=== PATIENT | female | born 1975 | race Caucasian/White ===

== ENCOUNTER 2016-08-17 21:35 | Emergency (ER) | payer OTHER ==
[~2016-08-17] VITALS: Ht 160 cm; Wt 69.6 kg
[~2016-08-17 21:35] MED LIST: ALOE VERA JUICE PO; BENTYL20 MG PO; CARAFATE1 GM PO; CURCUMIN PO; ESOMEPRAZOLE MA40 MG PO; LBS II PO; LINZESS145 MCG PO; MAGNESIUM250 MG PO; MIRALAX17 GM PO; NAPROSYN500 MG PO; ONDANSETRON HCL4 MG PO; PEPCID COMPLET1 EACH PO; PERCOCET 5/31 TABLET PO; PROBIOTIC1 EAC2 PO; PROMETHAZINE HC25 M1 PO; PROTONIX40 MG PO; REGLAN10 MG PO; STOMACH RELIEF262 M1 PO; SUCRALFATE1 GM PO; TERRAZYME PO; VITAMIN B12 PO; ZANTAC150 MG PO; ZOFRAN4 MG PO; ZYRTEC10 M2 PO; ZYRTEC10 M3 PO; [UNRECOGNIZED DRUG - CODE] PO; [UNRECOGNIZED DRUG - OTHER] PO; [UNRECOGNIZED DRUG - OTHER] PO
[2016-08-17 22:24] LABS: HEMATOCRIT 33.6 % (36.0-46.0); MCH 26.9 PG (29.0-34.0); MCHC 33.3 G/DL (30.0-36.0); MCV 80.8 FL (83-99); MEAN PLAT.VOLUME 10.1 uM^3 (9.5-12.4); PLATELET COUNT 343 K/uL (156-360); RBC DIS.WIDTH-CV 14.6 % (11.8-14.6); RBC DIS.WIDTH-SD 41.9 % (39-53); RED BLOOD COUNT 4.16 M/uL (3.80-5.20); WHITE BLOOD COUNT 10.2 K/uL (4.1-10.2)
[2016-08-17 22:44] LABS: CHLORIDE 107 mEq/L (99-109); POTASSIUM 3.9 mEq/L (3.7-5.4); SODIUM 138 mEq/L (136-147)
[2016-08-17 22:46] LABS: GLUCOSE 115 mg/dL (70-99)
[2016-08-17 22:47] LABS: ANION GAP 9 MEQ/L (2-14)
[2016-08-17 22:48] LABS: TOTAL BILIRUBIN 0.5 mg/dL (0.0-1.0)
[2016-08-17 22:49] LABS: ALKALINE PHOSPHATASE 53 IU/L (3-129)
[2016-08-17 22:50] LABS: GFR ESTIMATE (CALCULATED) > 59 mL/min/
[2016-08-17 22:51] LABS: QUANTITATIVE HCG < 4.0 MIU/ML; UREA NITROGEN (BUN) 5 mg/dL (9-23)
[2016-08-17 22:53] LABS: LIPASE 29 U/L (1.0-51.0)
[2016-08-18 02:56] LABS: ADD MIUA? NO; BILIRUBIN NEGATIVE; BLOOD NEGATIVE; COLOR YELLOW ((YELLOW)); GLUCOSE (STRIP) NEGATIVE; KETONES NEGATIVE; LEUKOCYTES NEGATIVE; NITRITE NEGATIVE; PROTEIN (STRIP) NEGATIVE; SPECIFIC GRAVITY 1.006 (1.000-1.030); UCUL ADDED? NO; UROBILINOGEN 0.2 MG/DL (0.2-1.0)
[2016-08-18] MEDS ORDERED: ZOFRAN4 MG PO (03:20)
[2016-08-18] MEDS ORDERED: REGLAN10 MG PO (03:20)
[2016-08-18 04:07] VITALS: BP 119/67
== END 2016-08-18 04:08 | disposition home or self-care (01) ==
LOC: EME 21:35
DX: K31.84 Gastroparesis (principal); Z87.891 Personal history of nicotine dependence
CPT/HCPCS: 80053; 81003; 83690; 84702; 85027; 93005; 99281; 99285; J2405; J2765; J7030